=== PATIENT | female | born 1970 | race Caucasian/White ===

== ENCOUNTER 2016-09-25 07:55 | Day surgery (SDC) | payer BC ==
[~2016-09-25 07:55] MED LIST: ceFAZolin 2 GM/DEXTROSE 100 ML IV ONE
[2016-09-25] MEDS ORDERED: CEFAZOLIN 2 GM/DEXTROSE/100 ML BAG IV ONE (08:37)
[2016-09-25] MEDS ORDERED: LIDOCAINE 1% 5 ML SDV ONE (08:37)
[2016-09-25] MEDS ORDERED: BUPIVACAINE 0.5% 30 ML SDV ONE (08:54)
[2016-09-25] MEDS ORDERED: BUPIVACAINE/EPI 0.25% 30 ML SDV ONE (09:02)
[2016-09-25] MEDS ORDERED: MIDAZOLAM 2 MG/2 ML VIAL ONE (09:03)
[2016-09-25] MEDS ORDERED: PROPOFOL/EMULSION 500 MG/50 ML BOTTLE IV ONE (09:12)
[2016-09-25] MEDS ORDERED: LIDOCAINE 2% 5 ML SDV ONE (09:12)
[2016-09-25] MEDS ORDERED: fentaNYL 100 MCG/2 ML INJ ONE (09:23)
[2016-09-25] MEDS ORDERED: SODIUM BICARBONATE 10 MEQ/10 ML SYR IVP ONE (09:24)
[2016-09-25] MEDS ORDERED: LIDOCAINE 1% 30 ML SDV ONE (09:24)
[2016-09-25] MEDS ORDERED: KETOROLAC 30 MG/1 ML SDV ONE (11:07)
[2016-09-25] MEDS ORDERED: HYDROCODONE/APAP 5/325 TAB ONE (12:21)
--- NOTE | 2016-09-25 13:33 | POSTOPPROG ---
Post Op Note Date of Operation: 09/25/16 Surgeon: Luis Albert Artificial Flowers Starcher: Shea Anesthesiologist: Eunice Anesthesia: IV Sedation, Local (Specify) Pre-op Diagnosis: RUE melanoma Post-op Diagnosis: same Procedure: WLE RUE melanoma Findings: 1cm or greater margin taken down to muscle Inf/Abcess present in the surg proc area at time of surgery?: No EBL: Minimal Specimen(s): RUE melanoma, stitch lai superior margin
--- NOTE | 2016-09-25 14:25 | GOP ---
DATE OF OPERATION: 09/25/2016 SURGEON: Luis Albert MD BUCKRAM SEWER: MINERVA Villegas. ANESTHESIA: Local with IV sedation. ANESTHESIOLOGIST: Per Dr. Dawson. PREOPERATIVE DIAGNOSIS: Right upper extremity melanoma. POSTOPERATIVE DIAGNOSIS: Right upper extremity melanoma. PROCEDURE PERFORMED: Wide local excision of right upper extremity melanoma. FINDINGS: Melanoma taken with at least 1 cm margins circumferentially, closed in layers. SPECIMENS: Right upper extremity melanoma, stitch lai superior margin. ESTIMATED BLOOD LOSS: 3 cc. DESCRIPTION OF PROCEDURE: The patient was greeted in the preoperative suite. Once again, risks, be nefits, and alternatives were discussed. Consent was signed. She was then brought back to the oper ative suite, placed in the OR table in a supine position. After all anesthesia machines were on and functioning, [employer] time-out was performed. After this, the patient was gently sedated using IV medications. Once sedated, her right upper extremity was prepped and draped in typ ical sterile fashion. After successful prepping and draping, I marked out my planned operative exci jennifer, having at least a centimeter margin in all directions and extending it out cranially and cauda lly in a 3:1 ratio, making an approximate 12 cm total lengthwise incision. I made the elliptical in cision. I carried it down to the subcutaneous tissue using electrocautery. I then took the specime n off, including the underlying fascia down to the muscle in an inferior to superior fashion. Once taken off, it was marked and passed off. Hemostasis was then achieved in the field with gentle pres sure and electrocautery. After this was done, flaps were created on the medial and lateral sides. I felt that I had adequate tissue to close it primarily. The underlying subcutaneous tissue was peter sed with interrupted 0 Vicryl stitches, and the skin was closed with a running 2-0 nylon, noting exc ellent reapproximation and minimal tension with no dog ears. This was then covered with a sterile d ressing. The patient was then gently woken and taken to the PACU in satisfactory condition. COMPLICATIONS: None. DRAINS: None. /[id number]/MODL
== END 2016-09-25 12:34 | disposition home or self-care (01) ==
LOC: FSGY 07:55
PROVIDERS: ATTEND Surgery
PROC: 0JBD0ZZ Excision of Right Upper Arm Subcutaneous Tissue and Fascia, Open Approach (ICD-10-PCS; principal; 2016-09-25 09:30)
DX: C43.61 Malignant melanoma of right upper limb, including shoulder (principal)
CPT/HCPCS: J0690; J1885; J2250; J2704; J3010

== ENCOUNTER 2017-01-03 14:32 | Emergency (ER) | payer BC ==
[2017-01-03 14:38] VITALS: BP 98/61; PULSE 74; RESP 16; TEMP 98.2; O2SAT 95
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
[2017-01-03] MEDS ORDERED: HYDROCODONE/APAP 5/325 TAB PO ONE (16:01)
== END 2017-01-03 16:23 | disposition home or self-care (01) ==
DX: S42.201A Unspecified fracture of upper end of right humerus, initial encounter for closed fracture (principal); V17.4XXA Pedal cycle driver injured in collision with fixed or stationary object in traffic accident, initial encounter; Y92.410 Unspecified street and highway as the place of occurrence of the external cause; Y99.8 Other external cause status; Y93.89 Activity, other specified
CPT/HCPCS: A4565